=== PATIENT | female | born 1970 | race Caucasian/White ===

== ENCOUNTER 2023-07-06 13:03 | Outpatient (CLI) | payer BC | END 2023-07-06 13:04 | disposition home or self-care (01) | LOC: SCSRAD 13:03 | PROVIDERS: ATTEND Internal Medicine Rheumatology | DX: M46.1 Sacroiliitis, not elsewhere classified (principal) | CPT/HCPCS: 72202 ==

== ENCOUNTER 2025-09-25 14:30 | Outpatient (CLI) | payer BC | END 2025-09-25 14:31 | disposition home or self-care (01) | LOC: SCSRAD 14:30 | PROVIDERS: ATTEND Family Medicine | DX: S34.139A Unspecified injury to sacral spinal cord, initial encounter (principal); M54.50 Low back pain, unspecified; M47.816 Spondylosis without myelopathy or radiculopathy, lumbar region | CPT/HCPCS: 72100; 72220 ==